=== PATIENT | female | born 1950 | race Caucasian/White ===

== ENCOUNTER → 2022-04-12 12:18 | Outpatient (CLI) | payer MEDICARE, SELFPAY ==
--- NOTE | ~2022-04-12 | MR_ITS ---
EXAMINATION: MR lumbar spine wo con DATE: 04/12/2022 13:04 INDICATION: Low back pain. Left leg pain. Degenerative disc disease. TECHNIQUE: Magnetic resonance imaging (MRI) of the lumbar spine was performed without intravenous con trast. Sequences included sagittal T2-weighted FSE, sagittal T2-weighted FS FSE, sagittal T1-weighted FSE, and axial T2-weighted FSE. COMPARISON: None FINDINGS: There is 3 degrees levocurvature of lumbar spine. There is mild chronic anterior wedging of T12-L2 vertebral bodies. There are Schmorl's nodes at most levels. There is severely decreased disc height at T10-T11, moderately decreased disc height from T11-T12 through L2-L3, mildly decreased disc height at L3-L4, moderately decreased disc height at L4-L5, and severely decreased disc height at L5 -S1. The distal spinal cord signal intensity is normal. The conus medullaris is at T12-L1. The follow ing disc levels are specifically discussed: L1-L2: The disc is bulging and has an annular fissure. There is moderate bilateral facet joint osteoa rthritis. There is moderate right and mild left neural foraminal stenosis. There is mild central wanda l stenosis. L2-L3: The disc is bulging. There is severe bilateral facet joint osteoarthritis. There is moderate b ilateral neural foraminal stenosis. There is mild central canal stenosis. L3-L4: The disc is bulging. There is severe bilateral facet joint osteoarthritis. There is moderate b ilateral neural foraminal stenosis. There is mild central canal stenosis. L4-L5: The disc is bulging. There is severe bilateral facet joint osteoarthritis. There is moderate b ilateral neural foraminal stenosis. There is mild central canal stenosis. L5-S1: The disc is bulging with superimposed left subarticular zone extrusion with mass effect on the left S1 nerve root in left lateral recess. There is severe bilateral facet joint osteoarthritis. The re is mild bilateral neural foraminal stenosis. There is mild central canal stenosis. There is severe stenosis of left lateral recess. IMPRESSION: 1. Severe lumbar spondylosis. Of note, an extrusion at L5-S1 exerts mass effect on left S1 nerve root . Reviewed, dictated and finalized at location A. IMPRESSION: 1. Severe lumbar spondylosis. Of note, an extrusion at L5-S1 exerts mass effect on left S1 nerve root.
== END ==
PROVIDERS: PCP Nurse Practitioner Family; Visit Provider Nurse Practitioner Family
DX: M51.36 Other intervertebral disc degeneration, lumbar region (principal); M48.061 Spinal stenosis, lumbar region without neurogenic claudication; M47.816 Spondylosis without myelopathy or radiculopathy, lumbar region
CPT/HCPCS: 72148